=== PATIENT | male | born 1940 | race Caucasian/White ===

== ENCOUNTER → 2017-07-31 | Outpatient (CLI) | payer OTHER ==
[2017-07-31 12:36] LABS: HEMATOCRIT 39.5 % (42-52); HEMOGLOBIN 13.4 g/dL (14.0-18.0); MEAN CELL VOLUME 90.8 fL (80-100); MEAN CORPUSCULAR HEMOGLOBIN 30.8 pg (25-34); MEAN CORPUSCULAR HGB CONC 33.9 g/dl (32-36); PLATELET COUNT 281 K/uL (130-400); RED CELL DISTRIBUTION WIDTH CV 13.9 % (11.5-14.5); RED CELL DISTRIBUTION WIDTH SD 45.7 fL (36.4-46.3); WHITE BLOOD COUNT 24.83 K/uL (4.8-10.8)
[2017-07-31 13:05] LABS: ALBUMIN 3.8 gm/dl (3.4-5.0); ALT/SGPT 35 U/L (12-78); AST/SGOT 16 U/L (15-37); BLOOD UREA NITROGEN 49 mg/dl (7-18); CALCIUM 10.5 mg/dl (8.5-10.1); CARBON DIOXIDE 27 mmol/L (21-32); CREATININE 1.58 mg/dl (0.60-1.40); GLUCOSE 166 mg/dl (70-99); POTASSIUM 4.3 mmol/L (3.5-5.1); SODIUM 137 mmol/L (136-145)
[2017-07-31 13:07] LABS: HEMOGLOBIN A1C 6.9 % (4.5-5.6)
[2017-07-31 13:13] LABS: ALKALINE PHOSPHATASE 60 U/L (45-117); CHOLESTEROL 124 mg/dl (0-200); LDL CHOLESTEROL CALCULATED 53 mg/dl; TOTAL PROTEIN 7.6 gm/dl (6.4-8.2)
[2017-07-31 14:16] LABS: BASO % 0.2 %; BASO ABS # 0.06 K/uL (0-0.2); EOS % 1.1 %; EOS ABS # 0.27 K/uL (0-0.5); IG# 0.11 K/uL (0.00-0.02); LYMPH ABS # 16.64 K/uL (1.2-3.4); MONO % 3.4 %; MONO ABS # 0.85 K/uL (0.11-0.59); NEUT % 27.9 %
== END | disposition home or self-care (01) ==
LOC: C.LABMFLN 10:44
PROVIDERS: ATTEND Family Medicine
DX: D72.820 Lymphocytosis (symptomatic) (principal); E11.59 Type 2 diabetes mellitus with other circulatory complications; I10 Essential (primary) hypertension; E78.00 Pure hypercholesterolemia, unspecified; E11.42 Type 2 diabetes mellitus with diabetic polyneuropathy; I25.10 Atherosclerotic heart disease of native coronary artery without angina pectoris; R41.3 Other amnesia

== ENCOUNTER → 2017-08-28 | Outpatient (CLI) | payer OTHER, MEDICARE ==
[2017-08-28 18:27] LABS: BLOOD UREA NITROGEN 34 mg/dl (7-18); CREATININE 1.31 mg/dl (0.60-1.40)
== END | disposition home or self-care (01) ==
LOC: C.LABMFLN 15:13
PROVIDERS: ATTEND Family Medicine
DX: N28.9 Disorder of kidney and ureter, unspecified (principal)